=== PATIENT | female | born 1980 | race Caucasian/White ===

== ENCOUNTER → 2021-07-29 | Outpatient (CLI) | payer OTHER ==
[~2021-07-29] MED LIST: AMITRIPTYLINE H50 M2 PO; DOXYCYCLINE 10100 M2 PO; FLEXERIL PO; GABAPENTIN100 MG PO; LEVOTHYROXINE75 MC1 PO; OMEPRAZOLE40 MG PO; PREDNISONE 20 M20 MG PO; ZOFRAN ODT4 MG DISSOLVE
== END ==
LOC: M.CT 07:56
PROVIDERS: ATTEND Internal Medicine Cardiovascular Disease
DX: Z13.6 Encounter for screening for cardiovascular disorders (principal); I25.10 Atherosclerotic heart disease of native coronary artery without angina pectoris